=== PATIENT | male | born 1995 | race Caucasian/White ===

== ENCOUNTER → 2020-10-06 15:13 | Outpatient (CLI) | payer OTHER, SELFPAY ==
--- NOTE | 2020-10-12 08:19 | PM.PFT.1 ---
Pulmonary Function Test Referral & Results Date Patient Seen: 10/06/20 Requesting provider: Caden Vela Results: The spirometry demonstrates an FVC of 6.12 L which is 106% of predicted. The FEV1 was measured at 4.35 L which is 92% of predicted. The FEV1/FVC ratio was 71 which is 85% of predicted. Following the administration of bronchodilator there was a 25% improvement in FEF 25-75%. Lung volumes show an SVC of 5.91 L which is 107% of predicted. The diffusing capacity was measured at 40.39 which is 119% of predicted. The maximum voluntary ventilation was normal Interpretation: This study demonstrates normal pulmonary function
== END ==
PROVIDERS: Referring Provider Family Medicine; Visit Provider Family Medicine
DX: J45.909 Unspecified asthma, uncomplicated (principal)
CPT/HCPCS: 94060; 94726; 94729